=== PATIENT | female | born 1990 | race Caucasian/White ===

== ENCOUNTER 2018-11-20 13:23 | Emergency (ER) | payer MEDICAID ==
[~2018-11-20] VITALS: Ht 157.5 cm; Wt 66.0 kg
[2018-11-20 15:46] VITALS: BP 103/59
== END 2018-11-20 15:48 | disposition home or self-care (01) ==
LOC: ER 13:23
DX: O26.892 Other specified pregnancy related conditions, second trimester (principal); M54.9 Dorsalgia, unspecified; Z3A.23 23 weeks gestation of pregnancy
CPT/HCPCS: 99281

== ENCOUNTER 2021-02-07 12:12 | Emergency (ER) | payer MEDICAID ==
[~2021-02-07] VITALS: Ht 157.5 cm; Wt 60.0 kg
[2021-02-07 12:27] VITALS: BP 123/51
== END 2021-02-07 14:40 | disposition home or self-care (01) ==
LOC: ER 12:12
DX: H11.32 Conjunctival hemorrhage, left eye (principal); Z98.890 Other specified postprocedural states
CPT/HCPCS: 99281